=== PATIENT | female | born 1950 | race Caucasian/White ===

== ENCOUNTER 2020-07-30 12:28 | Emergency (ER) | payer MEDICARE, MEDICAID, SELFPAY ==
[2020-07-30 12:59] VITALS: BP 122/53; PULSE 99; RESP 16; TEMP 36.3; O2SAT 97
[2020-07-30] MEDS: Fluorescein STRIPS 100/BOX 1 MG (13:36)
[2020-07-30] MEDS: Tetracaine 0.5% 4 ML BTL (13:36)
[2020-07-30] MEDS: Erythromycin Ophth Oint 3.5 GM TUBE OD (14:16)
--- NOTE | 2020-08-01 15:21 | ED.GENADUL_ITS ---
Discharge Plan Disposition Patient Disposition: HOME Condition: Stable Discharge Details Clinical Impression: Conjunctivitis Primary Care Provider: Aly Blue ED Provider: Joaquin Andersen Home Meds and New Rx's Prescriptions: Continued metformin 1,000 MG tablet 1,000 mg PO BID Qty: 60 RF: 5 albuterol sulfate [ProAir HFA] 8.5 GM HFA aerosol inhaler 1 - 2 puff Inhalation Q6H PRN Qty: 1 RF: 2 simvastatin 40 MG tablet 40 mg PO DAILY Qty: 30 RF: 0 aspirin 81 mg Tablet 81 mg PO DAILY RF: 0 Discharge Instructions Instructions: Conjunctivitis (ED) Additional Instructions: Patient left the ER prior to my verbal discharge or formal written discharge in structions. Discharge Data Discharge Date/Time-TO BE ENTERED AT DEPARTURE: 07/30/20 14:21 Medical Decision Making 70-year-old female who does wear reading glasses presents for right eye pain, irritation, discharge, blurry vision that began on the morning of 07-26. Denies obvious injury or recent illness. Clinically she appears well, nontoxic. Visual acuity is obtained, decreased vision in the right eye. Clinically this appears to be conjunctivitis however given her age, no obvious injury, would like to obtain intraocular pressure, examined with fluorescein, etc. Plan is to apply 3 drops of tetracaine and complete the rest of the eye exam. Upon reassessment patient reports that she is asymptomatic with the tetracaine. Intraocular pressure was obtained 3 times, average of 16 mmHg, which is in normal range. Fluorescein applied and there was no uptake. Pupils are equal, round, reactive. The right pupil does not appear to be sluggish whatsoever. Given her examination, intraocular pressure, complete resolution of her symptoms with tetracaine, I do believe diagnoses such as uveitis, iritis, glaucoma, etc. are far less likely. I did discuss the case briefly with Dr. Palacios. Plan is to provide erythromycin eye ointment here in the ER for her first dose, and stressed the importance of outpatient follow-up through her eyelet machine operator when she returns home. If not able to get home soon, she can certainly follow- up locally. Prior to my being able to discharge this patient, there was a code plata in the ER. Patient told her RN that she had to leave as her ride was in the parking lot. She was given the remaining erythromycin from the tube in her initial dosing. She was verbally discharged by her RN but I was unable to get back in the room to give either verbal or written discharge instructions. HPI General Mode of arrival: ambulatory . Date/Time Provider Initiated Documentation: 07/30/20 12:39 . Limitations to Documentation: no limitations . Information obtained by: patient . HPI Narrative: This is a 70-year-old female with past medical history that includes diabetes, COPD, hypercholesterolemia, presents for right eye pain that began on 07-26. She wears reading glasses but denies any other glasses or contacts. Patient denies any obvious injury, trauma, recent illness. She states that she woke up on 07-26 and her it was red and irritated. She noticed some discharge coming from her eye over the past 24 hours but denies any true crusting this morning. She does admit to some increased blurry vision. She reports the pain is mild-moderate, worse with blinking, and more of an irritation. She denies headache, fever, sore throat, double vision, neck pain, chest pain, shortness of breath, cough, numbness, tingling, weakness. She does have a eyelet machine operator at home however she is up here for the holidays visiting her family. She plans to be home in the next few days, unsure of the exact date. Related Data Home Medications Medication Instructions Recorded Confirmed metformin 1,000 mg PO BID #60 tab 01/01/14 07/30/20 albuterol sulfate [ProAir HFA] 1 - 2 puff INHALATION Q6H PRN #1 05/17/14 07/30/20 inhaler simvastatin 40 mg PO DAILY #30 tab-cap 08/12/14 07/30/20 aspirin 81 mg PO DAILY 07/30/20 07/30/20 Allergies Allergy/AdvReac Type Severity Reaction Status Date / Time Penicillins Allergy Intermediate Anaphylaxsi Unverified 05/17/14 13:13 s General Stated Complaint: EyeProblem [place]: 3 Review of Systems Constitutional Constitutional: Denies fever(s), Denies headache(s) and Denies weakness Eyes Eyes: Denies blind spots, Reports blurry vision, Denies diplopia, Reports eye discharge, Denies floaters, Reports irritation, Denies itchy eyes, Denies loss of vision, Reports eye pain, Reports requires corrective lenses (Reading glasses), Denies seeing flashes, Denies photophobia, Denies spots in vision and Denies tunnel vision ENT Ears, Nose, Mouth, and Throat: Denies otalgia, Denies headache(s), Denies nasal discharge, Denies neck pain and Denies sore throat Cardiovascular Cardiovascular: Denies chest pain and Denies dyspnea Respiratory Respiratory: Denies cough and Denies dyspnea Musculoskeletal Musculoskeletal: Denies neck pain, Denies numbness and Denies tingling Integumentary/Breasts Skin/Breast: Denies rash Neurologic Neurologic: Denies headache(s), Denies loss of vision, Denies numbness, Denies tingling and Denies weakness Allergic/Immunologic Allergic/Immunologic: Denies itchy eyes PFSH Family History Mother Hypertensive disorder, systemic arterial Hyperlipidemia Father Hypertensive disorder, systemic arterial Diabetes Sister Hypertensive disorder, systemic arterial Grandfather Personal history of malignant neoplasm Grandfather Hypertensive disorder, systemic arterial Diabetes Grandmother Hypertensive disorder, systemic arterial Diabetes Personal history of malignant neoplasm Grandmother No problems noted. Social History Smoking/Tobacco Use Status: Current every day Tobacco Type: cigarettes Smoking risk assessment performed?: Yes Alcohol Intake: current Alcohol Intake frequency: holidays/special occasions only Drug use: Never Substance use type: does not use Do you feel safe at home: Yes Do you feel safe in your relationship?: Yes Exam Const General: cooperative, healthy appearing, comfortable and no acute distress Orientation: alert, awake and oriented x3 [facility] Head: normal to inspection, normocephalic and atraumatic General nose exam: external nose normal Face and sinus: normal facial exam Mouth: moist mucous membranes Eyes General: appearance normal, both eyes and all related structures Alignment and Position: alignment normal Periorbital: periorbital findings normal Eyelids: eyelids normal Conjunctivae: conjunctival abnormality right conjunctival injection diffuse and discharge purulent Sclera: sclerae normal Cornea: corneas normal and fluorescein used Pupils: PERRL EOM: EOM intact bilaterally Direct ophthalmoscopy: normal light reflex Neck Neck: normal visual inspection, full ROM, no meningeal signs, trachea midline and supple Resp Effort & Inspection: normal respiratory effort and able to speak in complete sentences Auscultation: clear to auscultation bilaterally Cardio Rate: regular rate Rhythm: regular rhythm Skin General skin exam: no rashes or lesions noted Neuro General: patient alert, patient awake, patient oriented x3, moves all extremities and no focal motor deficits Cognition: normal cognition Speech: speech normal Gait: normal gait Sensory Exam: no sensory deficits noted Extrem General: normal to inspection and full ROM Psych Appearance: grossly normal Mental Status: mental status grossly normal Course Vital Signs Vital signs: Vital Signs Temperature 36.3 C L 07/30/20 12:59 Pulse 99 H 07/30/20 12:59 Respiratory Rate 16 07/30/20 12:59 Blood Pressure 122/53 L 07/30/20 12:59 Pulse Oximetry 97 07/30/20 12:59 Temperature 36.3 C L 07/30/20 12:59 Temperature Source Skin 07/30/20 12:59 Pulse 99 H 07/30/20 12:59 Respiratory Rate 16 07/30/20 12:59 Respiratory Effort 07/30/20 13:02 Blood Pressure 122/53 L 07/30/20 12:59 Blood Pressure Position Sitting 07/30/20 12:59 Pulse Oximetry 97 07/30/20 12:59 Oxygen Delivery Method Room Air 07/30/20 12:59 Oxygen Flow Rate 0 07/30/20 12:59 Pain Level 6 07/30/20 12:59
== END 2020-07-30 14:21 | disposition home or self-care (01) ==
LOC: ER 14:08
PROVIDERS: Emergency Provider Physician Assistant; PCP Family Medicine
DX: H10.31 Unspecified acute conjunctivitis, right eye (principal); E11.9 Type 2 diabetes mellitus without complications; Z79.84 Long term (current) use of oral hypoglycemic drugs; J44.9 Chronic obstructive pulmonary disease, unspecified; F17.210 Nicotine dependence, cigarettes, uncomplicated
CPT/HCPCS: 99283